=== PATIENT | female | born 1975 | race Caucasian/White ===

== ENCOUNTER 2023-12-27 08:24 | Outpatient (CLI) | payer OTHER, SELFPAY ==
[2023-12-27 14:16] LABS: Basophils Percent Auto 0.6 % (0.2-1.2); Eosinophils Absolute Auto 0.1 K/mm3 (0-0.3); Eosinophils Percent Auto 1.7 % (0-4.4); Hematocrit 41.3 % (37.0-47.0); Hemoglobin 12.7 g/dL (12.0-15.0); Immature Granulocyte Absolute 0.02 K/mm3 (0.00-0.031); Immature Granulocyte Percent A 0.3 % (0-0.5); Lymphocytes Absolute Auto 2.31 K/mm3 (0.9-3.2); Lymphocytes Percent Auto 35.2 % (18.3-44.2); Mean Corpuscular HGB Conc 30.8 g/dl (32-36); Mean Corpuscular Hemoglobin 24.9 pg (26-34); Mean Platelet Volume 11.7 fl (7.4-10.4); Monocytes Absolute Auto 0.6 K/mm3 (0.1-0.6); Monocytes Percent Auto 9.7 % (2.6-8.5); Neutrophils Absolute Auto 3.5 K/mm3 (1.3-6.7); Neutrophils Percent Auto 52.5 % (45.5-73.1); Platelet Count Result 285 k/mm3 (150-375); Red Cell Distribution Width 15.7 % (11.5-14.5); White Blood Count 6.6 K/mm3 (4.5-10.0)
[2023-12-27 15:37] LABS: Alanine Aminotransferase 16 U/L (6-35); Albumin Level 4.3 g/dL (3.5-5.1); Alkaline Phosphatase 102 U/L (38-126); Anion Gap 6 mmol/L (4-12); Aspartate Amino Transferase 34 U/L (14-36); Bilirubin,Total 0.6 mg/dL (0.2-1.3); Blood Urea Nitrogen 14 mg/dL (7-17); Carbon Dioxide 25 mmol/L (22-30); Chloride 108 mmol/L (98-107); Cholesterol 217 mg/dL (0-200); Estimated Glomerular Filt Rate > 60; Glucose 101 mg/dL (65-110); HDL Direct 42 mg/dL; Potassium 4.4 mmol/L (3.4-5.0); Sodium 139 mmol/L (137-145); Triglycerides 196 mg/dL (<150)
[2023-12-27 15:47] LABS: LDL Cholesterol Direct 119 mg/dL
[2023-12-27 16:37] LABS: Hemoglobin A1C 5.5 % (<5.7)
== END 2023-12-27 08:25 | disposition home or self-care (01) ==
LOC: ANHGOSHLAB 08:26
PROVIDERS: PCP Emergency Medicine; Visit Provider Emergency Medicine
DX: I10 Essential (primary) hypertension (principal); E66.01 Morbid (severe) obesity due to excess calories; Z68.41 Body mass index [BMI] 40.0-44.9, adult
CPT/HCPCS: 36415; 80053; 80061; 83036; 85025

== ENCOUNTER 2024-10-29 08:16 | Outpatient (CLI) | payer OTHER, SELFPAY ==
--- OUTSIDE RECORDS SUMMARY | 2024-10-29 08:25 | XMS_ITS | Referral Summary ---
Author Organization [facility] [address] [facility] Address [address] [address] Care Team Providers Care Cut In Worker Name Role Phone Ronaldo Chanel MD Primary Care Provider [phone]- [phone] Allergies Active Allergy Reactions Criticality Noted Date Comments Penicillins Hives Medium 12/31/2020 Medications predniSONE (DELTASONE) 10 mg tabletIndication s:Irritant contact dermatitis due to other agents Take 3 tabs days 1 & 2, 2 tabs days 3 & 4, 1 tab days 5-7. 13 tablet 12/31/2020 Active Active Problems No known active problems Social History Tobacco Use Types Packs/Day Years Used Date Smoking Tobacco: Never Smokeless Tobacco: Never Personal Safety Answer Date Recorded Getting School Help Needed Not on file 10/12 Comments No Sex and Gender Information Value Date Recorded Sex Assigned at Not on file Legal Sex Female 8:07 AM CDT Gender Identity Not on file Sexual Orientation Not on file Last Filed Vital Signs Vital Sign Reading Time Taken Comments Blood Pressure 124/80 12/31/2020 8:21 AM CDT Pulse 86 12/31/2020 8:21 AM CDT Temperature 36.8 C (98.3 F) 12/31/2020 8:21 AM CDT Respiratory Rate 16 12/31/2020 8:21 AM CDT Oxygen Saturation 98% 12/31/2020 8:21 AM CDT Inhaled Oxygen Concentration - - Weight 106.6 kg (235 lb) 12/31/2020 8:21 AM CDT Height 171.5 cm (5' 7.5 ) 12/31/2020 8:21 AM CDT Body Mass Index 36.26 12/31/2020 8:21 AM CDT Plan of Treatment Not on file Insurance [employer] [facility] Care Teams Cut In Worker Relationship Specialty Start Date End Date Ronaldo Chanel MD [address] [place] [address] [place] [address] PCP - General Family Medicine 12/31/20
--- OUTSIDE RECORDS SUMMARY | 2024-10-29 08:25 | XMS_ITS | Clinical Summary ---
Author Organization [facility] [address] [facility] Address [address] [address] Care Team Providers Care Merchandise Executive Name Role Phone Ronaldo Chanel MD Primary Care Provider [phone]- [phone] Allergies Active Allergy Reactions Criticality Noted Date Comments Penicillins Hives Medium 12/31/2020 Medications predniSONE (DELTASONE) 10 mg tabletIndication s:Irritant contact dermatitis due to other agents Take 3 tabs days 1 & 2, 2 tabs days 3 & 4, 1 tab days 5-7. 13 tablet 12/31/2020 Active Active Problems No known active problems Surgical History Surgery Date Site/Laterality Comments WISDOM TOOTH EXTRACTION Medical History Medical History Date Comments No pertinent past medical history Family History Medical History Relation Name Comments Hyperlipidemia Mother Relation Name Status Comments Father Alive Mother Alive Social History Tobacco Use Types Packs/Day Years Used Date Smoking Tobacco: Never Smokeless Tobacco: Never Personal Safety Answer Date Recorded Getting School Help Needed Not on file 10/12 Comments No Sex and Gender Information Value Date Recorded Sex Assigned at Not on file Legal Sex Female 8:07 AM CDT Gender Identity Not on file Sexual Orientation Not on file Obstetrics History Last Filed Vital Signs Vital Sign Reading [...] Plan of Treatment Not on file Insurance [employer] [facility] Care Teams Merchandise Executive Relationship Specialty Start Date End Date Ronaldo Chanel MD [facility] [place] [address] PCP - General Family Medicine 12/31/20
[2024-10-29 12:03] LABS: Hemoglobin A1C 5.8 % (<5.7)
[2024-10-29 12:11] LABS: Alanine Aminotransferase 17 U/L (6-35); Albumin Level 4.3 g/dL (3.5-5.1); Alkaline Phosphatase 109 U/L (38-126); Anion Gap 10 mmol/L (4-12); Aspartate Amino Transferase 43 U/L (14-36); Bilirubin,Total 0.6 mg/dL (0.2-1.3); Blood Urea Nitrogen 16 mg/dL (7-17); Calcium 8.9 mg/dL (8.4-10.2); Carbon Dioxide 26 mmol/L (22-30); Chloride 106 mmol/L (98-107); Cholesterol 230 mg/dL (0-200); Estimated Glomerular Filt Rate > 60; Glucose 101 mg/dL (65-110); HDL Direct 45 mg/dL; Potassium 4.4 mmol/L (3.4-5.0); Sodium 142 mmol/L (137-145); Triglycerides 201 mg/dL (<150)
[2024-10-29 12:22] LABS: LDL Cholesterol Direct 131 mg/dL
[2024-10-29 12:56] LABS: Creatinine Urine 127.6 mg/dL
[2024-10-29 13:00] LABS: MALB Creatinine Ratio 5.4 mg/g (0-30); Microalbumin Urine Random 6.9 mg/L (0-16.7)
[2024-10-29 13:16] LABS: Hepatitis C Virus Antibody Negative (Negative)
== END 2024-10-29 08:17 | disposition home or self-care (01) ==
LOC: ANHGOSHLAB 08:17
PROVIDERS: PCP Family Medicine; Visit Provider Family Medicine
DX: Z13.1 Encounter for screening for diabetes mellitus (principal); Z11.59 Encounter for screening for other viral diseases; Z13.6 Encounter for screening for cardiovascular disorders; I10 Essential (primary) hypertension
CPT/HCPCS: 36415; 80053; 80061; 82043; 83036; 86803